=== PATIENT | female | born 1990 | race Caucasian/White ===

== ENCOUNTER 2016-04-07 07:38 | Inpatient (IN) | payer BC, OTHER ==
[~2016-04-07] VITALS: Ht 160 cm; Wt 94.3 kg
[2016-04-07] VITALS (30 sets, daily range): BP systolic 120–174; BP diastolic 60–101
[~2016-04-07 07:38] MED LIST: ESCITALOPRAM OX10 MG PO; ESCITALOPRAM OX20 MG PO; IMITREX25 MG PO
[2016-04-07 09:33] LABS: EOSINOPHIL COUNT 0.2 K/uL (0-0.3); HEMATOCRIT 30.4 % (36.0-46.0); IMMATURE GRANULOCYTE COUNT 0.1 K/uL; LYMPHOCYTE COUNT 2.7 K/uL (1.0-2.8); MCH 27.5 PG (29.0-34.0); MCHC 32.6 G/DL (30.0-36.0); MCV 84.4 FL (83-99); MEAN PLAT.VOLUME 11.6 uM^3 (9.5-12.4); NEUTROPHIL (%) 72.3 % (45-76); NEUTROPHIL COUNT 10.3 K/uL (1.8-6.4); PLATELET COUNT 256 K/uL (156-360); RBC DIS.WIDTH-CV 13.2 % (11.8-14.6); RBC DIS.WIDTH-SD 40.6 % (39-53); WHITE BLOOD COUNT 14.3 K/uL (4.1-10.2)
[2016-04-07 12:39] LABS: ANION GAP 10 MEQ/L (2-14); CHLORIDE 106 MEQ/L (99-109); POTASSIUM 4.2 MEQ/L (3.7-5.4); SAMPLE HEMOLYSIS CHECK 0; SAMPLE ICTERIC CHECK 0; SAMPLE LIPEMIA CHECK 0; SODIUM 139 MEQ/L (136-147); TOTAL BILIRUBIN 0.3 MG/DL (0.0-1.0)
[2016-04-07 12:45] LABS: ALKALINE PHOSPHATASE 260 IU/L (3-129); GFR ESTIMATE (CALCULATED) > 59 mL/min/; GLUCOSE 63 mg/dL (70-99); UREA NITROGEN (BUN) 9 mg/dL (9-23)
[2016-04-07 16:02] LABS: UR CREATININE CONCENTRATION 64.2 MG/DL
[2016-04-08] VITALS (19 sets, daily range): BP systolic 130–162; BP diastolic 70–93
[2016-04-08] MEDS ORDERED: IBUPROFEN800 MG PO (03:07)
[2016-04-09] VITALS (9 sets, daily range): BP systolic 112–170; BP diastolic 68–104
[2016-04-10] VITALS (10 sets, daily range): BP systolic 112–177; BP diastolic 65–95
[2016-04-10 10:42] LABS: EOSINOPHIL (%) 2.8 % (0-5); EOSINOPHIL COUNT 0.3 K/uL (0-0.3); HEMATOCRIT 26.5 % (36.0-46.0); IMMATURE GRANULOCYTE (%) 1.1 % (0.0-0.7); IMMATURE GRANULOCYTE COUNT 0.1 K/uL; LYMPHOCYTE COUNT 2.3 K/uL (1.0-2.8); MCH 27.9 PG (29.0-34.0); MCHC 32.8 G/DL (30.0-36.0); MCV 84.9 FL (83-99); MEAN PLAT.VOLUME 11.2 uM^3 (9.5-12.4); MONOCYTE (%) 4.6 % (3-12); MONOCYTE COUNT 0.5 K/uL (0-0.8); NEUTROPHIL COUNT 7.9 K/uL (1.8-6.4); PLATELET COUNT 276 K/uL (156-360); RBC DIS.WIDTH-CV 13.7 % (11.8-14.6); RBC DIS.WIDTH-SD 41.2 % (39-53); RED BLOOD COUNT 3.12 M/uL (3.80-5.20); WHITE BLOOD COUNT 11.1 K/uL (4.1-10.2)
[2016-04-10 11:24] LABS: ANION GAP 8 MEQ/L (2-14); CHLORIDE 104 MEQ/L (99-109); GFR ESTIMATE (CALCULATED) > 59 mL/min/; POTASSIUM 4.2 MEQ/L (3.7-5.4); SAMPLE HEMOLYSIS CHECK 0; SAMPLE ICTERIC CHECK 0; SAMPLE LIPEMIA CHECK 1; SODIUM 139 MEQ/L (136-147); UREA NITROGEN (BUN) 11 mg/dL (9-23)
[2016-04-10 11:26] LABS: GLUCOSE 82 mg/dL (70-99); TOTAL BILIRUBIN 0.2 MG/DL (0.0-1.0)
[2016-04-10 11:27] LABS: ALKALINE PHOSPHATASE 155 IU/L (3-129)
[2016-04-11 04:00] VITALS: BP 145/80
[2016-04-11 06:58] VITALS: BP 105/54
[2016-04-11 09:12] VITALS: BP 107/57
[2016-04-11 10:00] VITALS: BP 136/88
[2016-04-11 10:17] VITALS: BP 126/75
[2016-04-11] MEDS ORDERED: Procardia XL,Adalat PO (10:40)
== END 2016-04-11 12:29 | disposition home or self-care (01) | DRG 774 ==
LOC: LDRP-OP 07:38 → 2WEST 07:39 → LDRP-OP 05-19 09:50
PROVIDERS: Midwife; Nurse Practitioner; Obstetrics & Gynecology
DX: O99.824 Streptococcus B carrier state complicating childbirth (principal); F32.9 Major depressive disorder, single episode, unspecified; D50.9 Iron deficiency anemia, unspecified; Z3A.38 38 weeks gestation of pregnancy; Z37.0 Single live birth; O13.4 Gestational [pregnancy-induced] hypertension without significant proteinuria, complicating childbirth; K58.9 Irritable bowel syndrome, unspecified; G43.909 Migraine, unspecified, not intractable, without status migrainosus; O74.5 Spinal and epidural anesthesia-induced headache during labor and delivery; O99.02 Anemia complicating childbirth; O99.344 Other mental disorders complicating childbirth; O99.354 Diseases of the nervous system complicating childbirth; O99.62 Diseases of the digestive system complicating childbirth; O22.43 Hemorrhoids in pregnancy, third trimester
CPT/HCPCS: 80053; 82570; 84156; 85025; 87070; 87075; 87077; 87186; 87205; C1755; G0378; J0595; J1200; J2540; J3010; J7120